=== PATIENT | male | born 2000 | race Caucasian/White ===

== ENCOUNTER 2022-06-25 04:44 | Emergency (ER) | payer OTHER, SELFPAY ==
--- NOTE | ~2022-06-25 | CT_ITS ---
EXAMINATION: CT brain wo con INDICATION: Head injury COMPARISON: None TECHNIQUE: Standard unenhanced head CT. The dose-length product (DLP) was 605.33 mGy-cm. The mA was a djusted according to patient size. Iterative reconstruction technique was employed. FINDINGS: There is no intracranial hemorrhage, acute infarction, or abnormal mass lesion. The ventric les are normal. There is no abnormal mass effect or midline shift. The stone-white matter differentiat ion is normal. The basal cisterns are patent. The orbits are normal. The paranasal sinuses, mastoids and calvarium are normal. IMPRESSION: 1. No acute intracranial abnormality. Reviewed, dictated and finalized at location A.
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
[2022-06-25 04:44] VITALS: BP 136/64; PULSE 121; RESP 18; TEMP 36.4
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
[2022-06-25] MEDS: SODIUM CHLORIDE 0.9% IV 1,000 ML 999 ML IV CONT ×2 (05:34→06:36)
[2022-06-25 05:35] VITALS: BP 120/70; PULSE 87; RESP 21; O2SAT 95
[2022-06-25 05:44] LABS: Basophils Percent Auto 0.3 % (0.2-1.2); Eosinophils Percent Auto 0.1 % (0-4.4); Immature Granulocyte Absolute 0.06 K/mm3 (0.00-0.031); Immature Granulocyte Percent A 0.4 % (0-0.5); Lymphocytes Absolute Auto 1.52 K/mm3 (0.9-3.2); Lymphocytes Percent Auto 11.1 % (18.3-44.2); Mean Corpuscular HGB Conc 33.3 g/dl (32-36); Mean Corpuscular Hemoglobin 30.3 pg (26-34); Mean Corpuscular Volume 90.9 fl (80-100); Mean Platelet Volume 9.4 fl (7.4-10.4); Monocytes Percent Auto 7.1 % (2.6-8.5); Neutrophils Absolute Auto 11.1 K/mm3 (1.3-6.7); Platelet Count Result 222 k/mm3 (150-375); Red Blood Count 4.95 M/mm3 (4.6-6.20); Red Cell Distribution Width 13.2 % (11.5-14.5); White Blood Count 13.7 K/mm3 (4.5-10.0)
[2022-06-25 05:55] LABS: Ethanol 249 mg/dL (<10)
[2022-06-25 05:56] LABS: Alanine Aminotransferase 19 U/L (6-50); Albumin Level 5.2 g/dL (3.7-5.6); Alkaline Phosphatase 75 U/L (58-237); Anion Gap 17 mmol/L (8-16); Aspartate Amino Transferase 32 U/L (17-59); Bilirubin,Total 0.7 mg/dL (0.2-1.3); Blood Urea Nitrogen 9 mg/dL (8-21); Calcium 8.8 mg/dL (8.9-10.7); Carbon Dioxide 22 mmol/L (22-30); Chloride 109 mmol/L (98-107); Estimated CRCL calculation 118 ml/min; Estimated Glomerular Filt Rate > 60; Glucose 96 mg/dL (65-110); Potassium 3.9 mmol/L (3.4-5.0); Sodium 148 mmol/L (134-143)
[2022-06-25 05:58] LABS: Lactic Acid Reflex 4.5 mmol/L (0.7-2.0)
[2022-06-25 07:30] VITALS: BP 105/48; PULSE 87; RESP 18; O2SAT 96
[2022-06-25 08:36] LABS: Reflex Lactic Acid Yes or No Add Lactic
[2022-06-25 09:00] LABS: Lactic Acid 2.5 mmol/L (0.7-2.0)
--- NOTE | 2022-06-25 09:09 | PC.NURSE ---
Patient walked to bathroom without difficulty and in no distress.
[2022-06-25] MEDS: IBUPROFEN 600 MG TABLET PO (09:32)
[2022-06-25 10:09] VITALS: BP 135/70; PULSE 97; RESP 18; O2SAT 99
[2022-06-25] MEDS: HYDROcodone/acetaminophen (*CRX) 5-325 MG TABLET 1 TAB PO (10:09)
== END 2022-06-25 10:23 | disposition home or self-care (01) ==
PROVIDERS: Emergency Provider Emergency Medicine; PCP Pediatrics
DX: S09.90XA Unspecified injury of head, initial encounter (principal); S92.421A Displaced fracture of distal phalanx of right great toe, initial encounter for closed fracture; F10.129 Alcohol abuse with intoxication, unspecified; Y90.8 Blood alcohol level of 240 mg/100 ml or more; Y04.0XXA Assault by unarmed brawl or fight, initial encounter
CPT/HCPCS: 36415; 70450; 73630; 80053; 80307; 83605; 85025; 96360; 96361; 99284; A9270; J7030